=== PATIENT | female | born 1955 | race Caucasian/White ===

== ENCOUNTER 2021-12-13 01:43 | Inpatient (IN) | payer OTHER ==
[~2021-12-13] VITALS: Ht 157.5 cm; Wt 79.4 kg
[2021-12-13 02:44] LABS: Basophils # (auto) 0.1 10 ^3/uL (0-0.2); Basophils % (auto) 0.7 % (0.0-2.0); Eosinophils # (auto) 0.4 10 ^3/uL (0-0.8); Eosinophils % (auto) 4.9 % (0.0-7.0); Hematocrit 42.7 % (36.0-46.0); Hemoglobin 14.8 g/dL (12.2-16.2); Lymphocytes % (auto) 38.6 % (10.0-50.0); Mean Corpuscular Hemoglobin 31.9 pg (28.0-32.0); Mean Corpuscular Hgb Conc. 34.7 g/dL (32.0-36.0); Monocytes # (auto) 0.5 10 ^3/uL (0-1.3); Monocytes % (auto) 5.8 % (0.0-12.0); Neutrophils # (auto) 3.9 10 ^3/uL (1.6-8.6); Red Blood Cells 4.64 10^6/uL (4.0-5.20); White Blood Cell 7.9 10^3/uL (4.4-10.8)
[2021-12-13 03:04] LABS: Calcium 9.2 mg/dL (8.5-10.1); Potassium 3.7 mmol/L (3.5-5.1)
[2021-12-13 03:08] LABS: Albumin 3.7 g/dL (3.4-5.0); BUN/Creatinine Ratio 23.2; Magnesium 2.6 mg/dL (1.6-2.6)
[2021-12-13 03:13] LABS: Bilirubin, Total 0.6 mg/dL (0.2-1.0); Total Protein 7.3 g/dL (6.4-8.2)
[2021-12-13] MEDS ORDERED: NITROGLYCERIN 0.4 MG SL TAB SL PRN ×2 (05:45)
[2021-12-13] MEDS ORDERED: ACETAMINOPHEN 325 MG TAB PO PRN (05:45)
[2021-12-13] MEDS ORDERED: SODIUM CHLORIDE 0.9% 1,000 ML IV SCH (05:45)
[2021-12-13] MEDS ORDERED: MORPHINE SULFATE INJECTION 2 MG/ML SYRG IV PRN (05:45)
[2021-12-13] MEDS ORDERED: MORPHINE SULFATE 4 MG/ML SYR/VIAL IV PRN (05:45)
[2021-12-13 08:07] LABS: Cholesterol 165 mg/dL (< 200); HDL Cholesterol 58 mg/dL (40-59); LDL Cholesterol 88 mg/dL (< 100); Triglycerides 124 mg/dL (< 150)
[2021-12-13 08:55] VITALS: BP 145/83
[2021-12-13 09:00] VITALS: BP 145/83
[2021-12-13] MEDS ORDERED: PANTOPRAZOLE 40 MG TAB PO SCH (10:00)
[2021-12-13] MEDS ORDERED: LISINOPRIL 5 MG TAB PO SCH (10:00)
[2021-12-13] MEDS ORDERED: FAMOTIDINE 20 MG TAB PO SCH (10:00)
[2021-12-13] MEDS ORDERED: ENOXAPARIN SOD 60 MG/0.6 ML SYRINGE SC SCH (10:00)
[2021-12-13] MEDS ORDERED: ASPirin 81 mg TAB PO SCH (10:00)
[2021-12-13] MEDS ORDERED: CARVEDILOL 3.125 MG TAB PO SCH (10:00)
[2021-12-13] MEDS ORDERED: OMEG1CAP68 PO (10:31)
[2021-12-13] MEDS ORDERED: ZINC100T5 PO (10:31)
[2021-12-13] MEDS ORDERED: ATOR10TA52 PO (10:31)
[2021-12-13] MEDS ORDERED: OMEP20TA PO (10:31)
[2021-12-13] MEDS ORDERED: VITACAP OR (10:31)
[2021-12-13] MEDS ORDERED: AMLO5CAP40 PO (10:31)
[2021-12-13] MEDS ORDERED: CHOL20007 PO (10:31)
[2021-12-13] MEDS ORDERED: LEV100T PO (10:31)
[2021-12-13] MEDS ORDERED: VITA400T4 PO (10:31)
[2021-12-13] MEDS ORDERED: AMLO-489 PO (10:31)
[2021-12-13] MEDS ORDERED: MAGN400T40 OR (10:31)
[2021-12-13] MEDS ORDERED: MULT-1018 PO (10:31)
[2021-12-13] MEDS ORDERED: HYDR25TA4 PO (10:31)
[2021-12-13 12:45] VITALS: BP 113/75
[2021-12-13 17:11] VITALS: BP 123/64
[2021-12-13 20:40] VITALS: BP 123/64
[2021-12-13] MEDS ORDERED: ATORVASTATIN 20 MG TAB PO SCH (22:00)
== END 2021-12-13 21:30 | disposition home or self-care (01) | DRG 313 ==
LOC: ER 01:56 → TELE 05:35 → TELE-WESTW 08:56
PROVIDERS: ADMIT Internal Medicine; ATTEND Internal Medicine
DX: R07.89 Other chest pain (principal); I16.1 Hypertensive emergency; R42 Dizziness and giddiness; R55 Syncope and collapse; E66.9 Obesity, unspecified; E03.9 Hypothyroidism, unspecified; E78.5 Hyperlipidemia, unspecified; Z20.822 Contact with and (suspected) exposure to COVID-19; Z80.1 Family history of malignant neoplasm of trachea, bronchus and lung; Z82.0 Family history of epilepsy and other diseases of the nervous system; Z68.32 Body mass index [BMI] 32.0-32.9, adult
CPT/HCPCS: 36415; 70450; 71045; 80053; 80061; 83735; 83880; 84443; 84484; 85025; 85379; 93005; 93306; 93886; 96360; G0378

== ENCOUNTER 2025-06-18 09:28 | Inpatient (IN) | payer OTHER ==
[~2025-06-18] VITALS: Ht 157.5 cm; Wt 88.5 kg
[~2025-06-18 09:28] MED LIST: AMLO1TAB22 PO; AMLO5CAP2 PO; ATOR10TA52 PO; CHOL20007 PO; HYDR25TA4 PO; LEVO-849 PO; MAGN400T40 OR; MULT-1018 PO; OMEG1CAP68 PO; OMEP20TA PO; VITA400T4 PO; VITACAP OR; ZINC100T5 PO
--- NOTE | 2025-06-18 09:36 | ED.PDOC ---
GI ASSESSMENT HPI Comments 69-year-old female presents here with right upper quadrant pain. She states it began yesterday afternoon. She states yesterday morning see ate some cereal and banana. Yesterday afternoon she had for lunch she ate chicken salad sandwich. She states she has follow up by a surgeon Dr. Gabriel Kwan. She states in the past she has been told she has gallstones. She has associated with nausea right upper quadrant pain discomfort. She states yesterday she was doing housework when this pain started. She states once she rested the pain went away. Currently reports no pain reports positive nausea but states it is because she has not eaten anything and that is normal. Denies any recent fever or chills. Yesterday she did have pain with inspiration. Denies any recent cough cold runny nose fever or chills. Chief Complaint: Abdominal Pain Time Seen by MD: 11:50 Reviewed Notes: Medications, Allergies Allergies: Coded Allergies: NO KNOWN ALLERGIES (Unverified , 12/13/21) Home Meds Reported Medications Omeprazole (Gnp Omeprazole) 20 Mg Tab, 40 MG PO, TAB 12/13/21 Magnesium Oxide (MAGNESIUM OXIDE) 400 Mg Tab, 250 MG OR, TAB 12/13/21 Zinc Gluconate (ZINC) 100 Mg Tab, 50 MG PO, TAB 12/13/21 Vitamin [id number] (VITAMIN C & D3/LANDY HIPS) /Landy Hi Cap, 1 OR, CAP 12/13/21 [place]-3 Fatty Acids (Fish Oil [place]-3 1000 mg) 1 Cap Cap, 1 CAP PO, CAP 12/13/21 Multiple Vitamin (Multivitamins) Tab, 1 TAB PO DAILY, #90 TAB 3 Refills 12/13/21 Alpha Tocopheryl Acid Succinat (VITAMIN E) 400 Unit Tab, 400 UNIT PO, TAB 12/13/21 Cholecalciferol (VITAMIN D3) 2,000 Unit Tab, 1 TAB PO DAILY, #30 TAB 5 Refills 12/13/21 Hydrochlorothiazide (Hydrochlorothiazide) 25 Mg Tab, 1 TAB PO DAILY, #30 TAB 5 Refills 12/13/21 Amlodipine Besylate (Amlodipine Besylate) 5 Mg Tab, 1 TAB PO DAILY, #30 TAB 5 Refills 12/13/21 Amlodipine Besylate-Benazepril (Lotrel) 1 Cap Cap, 1 CAP PO DAILY, #30 CAP 5 Refills 12/13/21 Levothyroxine Sodium (SYNTHROID TABLET) 100 Mcg Tb, 1 TAB PO DAILY, #30 TAB 5 Refills 12/13/21 Atorvastatin Calcium (ATORVASTATIN CALCIUM) 10 Mg Tab, 1 TAB PO DAILY, #30 TAB 5 Refills 12/13/21 Information Source: Patient, Spouse Mode of Arrival: Ambulatory Timing: Days Duration: Since onset Prehospital treatment: None Quality: Sharp Vomitus: None Severity: Moderate Recent: None Recent Hx of: None Pain Location: Epigastric, RUQ Modifying Factors: Nothing Associated sign and symptoms: Nausea, Abdominal Pain Past Medical History PAST MEDICAL HISTORY: Gallstones, HTN, Thyroid Surgical History: Denies all surgeries 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 Hx Family History Family History: Reviewed,noncontributory to illness Social History Smoker: Non-Smoker Alcohol: Denies ETOH Use Drugs: Denies Drug Use Lives In: Home Constitutional: denies: chills, diaphoresis, fatigue, fever, malaise, sweats, weakness, others EENTM: denies: blurred vision, double vision, ear bleeding, ear discharge, ear drainage, ear pain, ear ringing, eye pain, eye redness, hearing loss, mouth pain, mouth swelling, nasal discharge, nose bleeding, nose congestion, nose pain, photophobia, tearing, throat pain, throat swelling, voice changes, others Respiratory: denies: cough, hemoptysis, orthopnea, SOB at rest, shortness of breath, SOB with excertion, stridor, wheezing, others Cardiovascular: denies: chest pain, dizzy spells, diaphoresis, Dyspnea on exertion, edema, irregular heart beat, left arm pain, lightheadedness, palpitations, PND, syncope, others Gastrointestinal: reports: abdominal pain, nausea; denies: abdomen distended, blood streaked bowels, constipated, diarrhea, dysphagia, difficulty swallowing, hematemesis, melena, poor appetite, poor fluid intake, rectal bleeding, rectal pain, vomiting, others Genitourinary: denies: abnormal vagina bleeding, burning, dyspareunia, dysuria, flank pain, frequency, hematuria, incontinence, pain, , vagina discharge, urgency, others Neurological: denies: dizziness, fainting, headache, left sided numbness, left sided weakness, numbness, paresthesia, pre-existing deficit, right sided numbness, right sided weakness, seizure, speech problems, tingling, tremors, weakness, others Musculoskeletal: denies: back pain, gout, joint pain, joint swelling, muscle pain, muscle stiffness, neck pain, others Integumetry: denies: bruises, change in color, change in hair/nails, dryness, laceration, lesions, lumps, rash, wounds, others Allergic/Immunocompromised: denies: Difficulty Healing, Frequent Infections, Hives, Itching, others Hematologic/Lymphatic: denies: anemia, blood clots, easy bleeding, easy bruising, swollen glands, others Endocrine: denies: excessive hunger, excessive sweating, excessive thirst, excessive urination, flushing, intolerance to cold, intolerance to heat, unexplained weight gain, unexplained weight loss, others Psychiatric: denies: anxiety, bipolar disorder, depression, hopeless, panic disorder, schizophrenia, sleepless, suicidal, others All Other Systems: Reviewed and Negative Physical Exam General Appearance: No Apparent Distress, Normal HEENT: Normal ENT Inspection, Pharynx Normal, TMs Normal Neck: Full Range of Motion, Non-Tender, Normal, Normal Inspection Respiratory: Chest Non-Tender, Lungs Clear, No Accessory Muscle Use, No Respiratory Distress, Normal Breath Sounds Cardiovascular: No Edema, No JVD, No Murmur, No Gallop, Normal Peripheral Pulses, Regular Rate/Rhythm Breast Exam: Deferred Gastrointestinal: No Organomegaly, Non Tender, No Pulsatile Mass, Normal Bowel Sounds, Soft Genitalia: Deferred Pelvic: Deferred Rectal: Deferred Extremities: No calf tenderness, Normal capillary refill, Normal inspection, Normal range of motion, Non-tender, No pedal edema Musculoskeletal : Apperance: Normal Neurologic: Alert, appeals coordinator II-XII nml as Tested, No Motor Deficits, Normal Affect, Normal Mood, No Sensory Deficits Cerebellar Function: Normal Reflexes: Normal Skin: Dry, Normal Color, Warm Lymphatic: No Adenopathy EKG EKG : Comments Rate of 68 normal sinus rhythm, inverted T-wave in V1 AIVR, T-wave flattening in V2 V3 Was a procedure done? Was a procedure done?: No GI differential Dx Differential Diagnosis: Angina/OH, Aortic dissection, Cholecystitis, Esophagitis, Gastritis/PUD X-Ray, Labs, Meds, VS Vital Signs Date Time Temp Pulse Resp B/P (MAP) Pulse Ox O2 Delivery O2 Flow Rate FiO2 06/18/25 09:39 68 06/18/25 09:30 97.5 70 18 188/75 94 97.5 Lab Test 06/18/25 11:21 06/18/25 10:56 06/18/25 09:54 Range/Units Urine Color Light-yellow Yellow Urine Clarity Clear Clear Urine pH 6.0 5.0-9.0 Urine Specific [place] 1.006 1.001-1.035 Urine Protein Negative Negative Urine Ketones Negative Negative Urine Blood Negative Negative /uL Urine Nitrite Negative Negative Urine Bilirubin Negative Negative Urine Urobilinogen Normal Negative mg/dL Urine Leukocyte Esterase Negative Negative /uL Urine RBC 1 0 - 4 /hpf Urine Microscopic WBC 1 0-5 /HPF Urine Squamous Epithelial Cells Few <5 /hpf Urine Bacteria None seen None Seen /hpf Urine Glucose Normal Normal mg/dL Troponin I High Sensitivity 4 < 3 L </=34 ng/L White Blood Count 7.1 4.4-10.8 10^3/uL Red Blood Count 4.91 4.0-5.20 10^6/uL Hemoglobin 15.1 12.2-16.2 g/dL Hematocrit 43.8 36.0-46.0 % Mean Corpuscular Volume 89.2 80.0-100.0 fL Mean Corpuscular Hemoglobin 30.7 28.0-32.0 pg Mean Corpuscular Hemoglobin Concent 34.4 32.0-36.0 g/dL Red Cell Distribution Width 12.9 11.8-14.3 % Platelet Count 204 140-450 10^3/uL Mean Platelet Volume 7.7 6.9-10.8 fL Neutrophils (%) (Auto) 41.6 37.0-80.0 % Lymphocytes (%) (Auto) 47.4 10.0-50.0 % Monocytes (%) (Auto) 7.5 0.0-12.0 % Eosinophils (%) (Auto) 2.7 0.0-7.0 % Basophils (%) (Auto) 0.8 0.0-2.0 % Neutrophils # (Auto) 3.0 1.6-8.6 10 ^3/uL Lymphocytes # (Auto) 3.4 0.4-5.4 10 ^3/uL Monocytes # (Auto) 0.5 0-1.3 10 ^3/uL Eosinophils # (Auto) 0.2 0-0.8 10 ^3/uL Basophils # (Auto) 0.1 0-0.2 10 ^3/uL Nucleated Red Blood Cells 0.2 % Sodium Level 138 136-145 mmol/L Potassium Level 3.9 3.5-5.1 mmol/L Chloride Level 102 98-107 mmol/L Carbon Dioxide Level 28 20-31 mmol/L Anion Gap 8 5-15 Blood Urea Nitrogen 11 9-23 mg/dL Creatinine 0.82 0.550-1.02 mg/dL Glomerular Filtration Rate Calc 78 >90 mL/min BUN/Creatinine Ratio 13.4 10.0-20.0 Serum Glucose 134 H 74-106 mg/dL Calcium Level 9.4 8.7-10.4 mg/dL Total Bilirubin 0.8 0.2-1.0 mg/dL Aspartate Amino Transferase (AST) 53 H 13-40 U/L Alanine Aminotransferase (ALT) 69 H 7-40 U/L Alkaline Phosphatase 88 46-116 U/L Total Protein 7.0 5.7-8.2 g/dL Albumin 4.3 3.2-4.8 g/dL Lipase 45 12-53 U/L Current Medications Medications (Trade) Dose Ordered Sig/Aaliyah Route Start Time Stop Time Status Last Admin Sodium Chloride 500 ml @ 500 mls/hr Q1H ONCE IV 06/18/25 09:45 06/18/25 10:44 DC 06/18/25 11:18 [place] [id number] Ph: [phone] DIAGNOSTIC IMAGING Diagnostic Imaging Report : [id number] Signed PATIENT: EKATERIAN LOUISE ACCT: [id number] UNIT: [id number] : 1955 LOC: ER ROOM / BED: / AGE / SEX: 69 / F ADM STATUS: REG ER SERVICE 0940 ORDERING PHYSICIAN: OSVALDO QUIROZ MD PROCEDURE(s): GBUS - GALLBLADDER REASON: Rule out cholecystitis ORDER NUMBER(s): [id number], ACCESSION NUMBER(s): [id number] INDICATION: Pain; Rule out cholecystitis TECHNIQUE: Multiple real-time sonographic images were obtained of the right upper quadrant. COMPARISON: None FINDINGS: The liver demonstrates increased echotexture without focal mass lesions. The liver measures 16 cm. There is no intrahepatic or extrahepatic ductal dilatation. The common duct measures 5 mm. The gallbladder is without evidence of stone or sludge. Gallbladder polyp measuring 0.6 cm. The gallbladder wall measures 2 mm and is within normal limits. The right kidney measures 10.4 cm. The right kidney is normal in contour, size, and shape. The echogenicity is normal. There is no hydronephrosis. The pancreas is not well visualized due to overlying bowel gas. IMPRESSION: Hepatic steatosis. Gallbladder polyp measuring 0.6 cm. FOLLOW UP RECOMMENDATIONS: Extremely low-risk polyps (pedunculated vagh-mw-tqv-wall or thin stalk): <9 mm: no follow-up (FU) 10-14 mm: FU at 6, 12 and 24 months > 15 mm: surgical consult Low-risk polyps (pedunculated with a thick or wide stalk, or sessile): < 6 mm: no follow-up 7-9 mm follow-up ultrasound at 12 months 10-14 mm: follow-up ultrasound at 6, 12, 24, and 36 months vs surgical consult > 15 mm: surgical consult Intermediate risk (focal wall-thickening >4mm adjacent to polyp): < 6 mm: FU US at 6, 12, 24, 36 months vs surgical consult > 7 mm: surgical consult Robin Wooten, Elma Painter, Jaclyn Dawson et al. Management of Incidentally Detected Gallbladder Polyps: Society of Radiologists in Ultrasound Consensus Conference Recommendations. Radiology. 2021;:[id number]. ATED BY: SWATI MARTINEZ MD DICTATED DATE/TIME: 06/18/25 1118 SIGNED BY: SWATI MARTINEZ MD SIGNED DATE/TIME: 06/18/25 1118 CC: 69-year-old female presents here with right upper quadrant pain. She states she has a history of gallstones and has been following Dr. Pepper Kwan. She states yesterday she was doing housework when the discomfort started pain to the right upper quadrant associated with nausea. She states soon after she rested and the pain went away. At this time I performed an ultrasound of the gallbladder here in the ER. It demonstrates hepatic steatosis a 0.6 mm polyp but no gallstones or sludge. I had a long conversation with both the patient and her has been. We initially discussed following up with Dr. Gabriel Kwan as it is possible they were not seen today but were on previous ultrasounds. Additionally a CBC CMP were performed which does demonstrate mild transaminitis which patient states she has a known history of. EKG today however does demonstrate inverted T-waves in multiple leads and T-wave flattening. Although troponin x2 is negative. At this time I am concerned the her discomfort may be cardiac versus gallbladder related. She has agreed to stay in the hospital. Currently she has no discomfort. At this time hospitalist team has been consulted for admission. I have given her aspirin in the ER. Time of 1ST Reevaluation: 12:20 Reevaluation 1ST: Unchanged Patient Education/Counseling: Diagnosis, Treatment Family Education/Counseling: Diagnosis, Treatment SEPSIS Sepsis Screen Date sepsis recognized/suspect: Jun 18, 2025 Time Sepsis recognized/suspect: 931 Recent Procedure: No On Antibiotic Therapy: No Respiratory Rate >20: No Heart Rate >90: No Temp<36 C (96.8 F) or >38.3 C: No SBP <90 or MAP <65 mmHG: No New Acute Mental Status Change: No Is the patient on CPAP, BIPAP,: No Physician Orders Gallbladder (06/18/25 09:40) Vital Signs Date Time Temp Pulse Resp B/P (MAP) Pulse Ox O2 Delivery O2 Flow Rate FiO2 06/18/25 09:39 68 06/18/25 09:30 97.5 70 18 188/75 94 97.5 Laboratory Tests Test 06/18/25 09:54 White Blood Count 7.1 10^3/uL (4.4-10.8) Medications Medications Dose Ordered Sig/Aaliyah Route Start Time Stop Time Status Last Admin Dose Admin Sodium Chloride 500 ml @ 500 mls/hr Q1H ONCE IV 06/18/25 09:45 06/18/25 10:44 DC 06/18/25 11:18 Departure 1 Departure Time of Disposition: 12:18 Impression: Primary Impression: EKG abnormality Additional Impressions: Chest pain Qualified Codes: R07.9 - Chest pain, unspecified Hepatic steatosis Gallbladder polyp Disposition: ADMITTED INPATIENT Condition: Fair Critical Care Note Critical Care Time?: No Stability Stability form required: No Heart Score Heart Score: Heart Score Response (Comments) Value History Moderate Suspicious 1 EKG Repolarization Disturb 1 Age >65 2 Risk Factors 1 or 2 risk factors 1 Troponin Normal limit 0 Total 5 I personally scribed for OSVALDO QUIROZ MD ([email or web address]) on 06/18/25 at 09:36. Electronically submitted by Marta Diop ([email or web address]). I personally scribed for OSVALDO QUIROZ MD ([email or web address]) on 06/18/25 at 11:34. Electronically submitted by Marta Diop ([email or web address]). I personally scribed for OSVALDO QUIROZ MD ([email or web address]) on 06/18/25 at 11:50. Electronically submitted by Marta Diop ([email or web address]). I personally scribed for OSVALDO QUIROZ MD ([email or web address]) on 06/18/25 at 12:01. Electronically submitted by Marta Diop ([email or web address]). OSVALDO QUIROZ MD Jun 18, 2025 09:36
--- NOTE | 2025-06-18 09:56 | ECG ---
[facility] Test Date: 2025-06-18 Test Time: 09:39:27 Pat Name: EKATERINA LOUISE Department: Room: 0295T Gender: F Yard Hostler: DELORIS : 1955 Requested By: OSVALDO QUIROZ Order Number: [id number] Reading MD: Timothy Corona Measurements Intervals [place] Rate: 68 P: 1 KS: 148 QRS: 8 QRSD: 87 T: 51 QT: 421 QTc: 448 Interpretive Statements Sinus rhythm Low voltage, precordial leads Borderline T abnormalities, anterior leads Baseline wander in lead(s) V4 Electronically Signed On 06-21-2025 18:42:56 PDT by Timothy Corona Please click the below link to view image of tracing.
[2025-06-18 10:03] LABS: Hematocrit 43.8 % (36.0-46.0); Hemoglobin 15.1 g/dL (12.2-16.2); Mean Corpuscular Hemoglobin 30.7 pg (28.0-32.0); Mean Corpuscular Volume 89.2 fL (80.0-100.0); Nucleated Red Blood Cells % 0.2 %
[2025-06-18 10:20] LABS: Alanine Aminotransferase 69 U/L (7-40); Albumin 4.3 g/dL (3.2-4.8); Alkaline Phosphatase 88 U/L (46-116); Anion Gap 8 (5-15); BUN/Creatinine Ratio 13.4 (10.0-20.0); Bilirubin, Total 0.8 mg/dL (0.2-1.0); Blood Urea Nitrogen 11 mg/dL (9-23); Calcium 9.4 mg/dL (8.7-10.4); Carbon Dioxide 28 mmol/L (20-31); Chloride 102 mmol/L (98-107); Glucose 134 mg/dL (74-106); Lipase 45 U/L (12-53); Potassium 3.9 mmol/L (3.5-5.1); Sodium 138 mmol/L (136-145); Total Protein 7.0 g/dL (5.7-8.2)
[2025-06-18] MEDS: SODIUM CHLORIDE 0.9% 500 ML IV ONE (11:18)
[2025-06-18] MEDS: ONDANSETRON HCL 4 MG/2 ML VIAL IV ONE (11:18)
[2025-06-18] MEDS: MORPHINE SULFATE INJ 2 MG/ml SYRG IV ONE (11:18)
--- NOTE | 2025-06-18 11:21 | DVH ---
INDICATION: Pain; Rule out cholecystitis TECHNIQUE: Multiple real-time sonographic images were obtained of the right upper quadrant. COMPARISON: None FINDINGS: The liver demonstrates increased echotexture without focal mass lesions. The liver measures 16 cm. There is no intrahepatic or extrahepatic ductal dilatation. The common duct measures 5 mm. The gallbladder is without evidence of stone or sludge. Gallbladder polyp measuring 0.6 cm. The gallb ladder wall measures 2 mm and is within normal limits. The right kidney measures 10.4 cm. The right kidney is normal in contour, size, and shape. The echog enicity is normal. There is no hydronephrosis. The pancreas is not well visualized due to overlying bowel gas. IMPRESSION: Hepatic steatosis. Gallbladder polyp measuring 0.6 cm. FOLLOW UP RECOMMENDATIONS: Extremely low-risk polyps (pedunculated iqmm-fz-ecs-wall or thin stalk): <9 mm: no follow-up (FU) 10-14 mm: FU at 6, 12 and 24 months > 15 mm: surgical consult Low-risk polyps (pedunculated with a thick or wide stalk, or sessile): < 6 mm: no follow-up 7-9 mm follow-up ultrasound at 12 months 10-14 mm: follow-up ultrasound at 6, 12, 24, and 36 months vs surgical consult > 15 mm: surgical consult Intermediate risk (focal wall-thickening >4mm adjacent to polyp): < 6 mm: FU US at 6, 12, 24, 36 months vs surgical consult > 7 mm: surgical consult Robin Wooten, Elma C, Jaclyn J et al. Management of Incidentally Detected Gallbladder Polyps: Society of Radiologists in Ultrasound Consensus Conference Recommendations. Radiology. 2021;:[id number].
[2025-06-18 11:31] LABS: Urine Protein, UAD Negative (Negative)
[2025-06-18 12:15] VITALS: PULSE 67; RESP 13; O2SAT 96
--- NOTE | 2025-06-18 12:56 | DVH ---
CHEST RADIOGRAPH Indication: Chest pain Technique: XY CHEST TWO VIEWS ROUTINE Comparison: None FINDINGS: The cardiac silhouette is unremarkable. The lungs demonstrate no pulmonary airspace consolidation. Th e pulmonary vasculature is unremarkable. There is no pleural effusion. There is no pneumothorax. IMPRESSION: No pulmonary airspace consolidation.
[2025-06-18] MEDS ORDERED: MORPHINE SULFATE INJ 2 MG/ml SYRG IV PRN ×2 (13:30→13:45)
[2025-06-18] MEDS ORDERED: NITROGLYCERIN 0.4 MG SL TAB SL PRN (13:30)
--- NOTE | 2025-06-18 13:42 | DVHHP2 ---
History of Present Illness Reason for Visit: Chest-epigastric discussed History of Present Illness 69-year-old female presents here with right upper quadrant pain. She states it began yesterday afternoon. She states yesterday morning see ate some cereal and banana. Yesterday afternoon she had for lunch she ate chicken salad sandwich. She states she has follow up by a surgeon Dr. Gabriel Kwan. She states in the past she has been told she has gallstones. She has associated with nausea right upper quadrant pain discomfort. She states yesterday she was doing housework when this pain started. She states once she rested the pain went away. Currently reports no pain reports positive nausea but states it is because she has not eaten anything and that is normal. Denies any recent fever or chills. Yesterday she did have pain with inspiration. Denies any recent cough cold runny nose fever or chills. In the ER patient ultrasound of the gallbladder showed a small gallbladder polyp otherwise no stones or acute pathology. However her EKG done showed a nonspecific T-wave inversions in the lateral leads which appeared to be new from her previous EKG done in 2021. Given her nonspecific compliance with the changes in EKG it is felt patient needs to be observed on telemetry overnight to rule out for any acute coronary syndrome and further evaluation management. Past Medical History Hypertension, hypercholesterolemia, hypothyroidism, osteoarthritis Past Surgical History None significant noted Family History: Hyperlipidemia, Hypertension Smoke: No ALCOHOL: occassional Lives: with Family Review of Systems Review of Systems No fevers chills or sweats. No headache dizziness or lightheadedness. No recent travel. No shortness a breath. Other review of systems reviewed normal. Allergies: Coded Allergies: Cephalexin (Verified Allergy, Unknown, 06/18/25) Sulfa Antibiotics (Verified Allergy, Unknown, 06/18/25) Medications Current Medications Medications Dose Ordered Sig/Aaliyah Route Start Time Stop Time Status Last Admin Dose Admin Nitroglycerin 0.4 mg Q5MINP PRN SL 06/18/25 13:30 UNV Morphine Sulfate 2 mg Q30M PRN IV 06/18/25 13:30 UNV Amlodipine Besylate 5 mg DAILY PO 06/19/25 10:00 UNV Levothyroxine Sodium 100 mcg DAILY PO 06/19/25 10:00 UNV Atorvastatin Calcium 10 mg HS PO 06/18/25 22:00 UNV Pantoprazole Sodium 40 mg BID IV 06/18/25 22:00 UNV Enoxaparin Sodium 40 mg DAILY SC 06/19/25 10:00 UNV Aspirin 81 mg DAILY PO 06/19/25 10:00 UNV Ondansetron HCl 4 mg Q4HPRN PRN IV 06/18/25 13:45 UNV Morphine Sulfate 2 mg Q4HPRN PRN IV 06/18/25 13:45 UNV Acetaminophen/ Hydrocodone Bitart 1 tab Q6HPRN PRN PO 06/18/25 13:45 UNV Exam Vital Signs Vital Signs Date Time Temp Pulse Resp B/P (MAP) Pulse Ox O2 Delivery O2 Flow Rate FiO2 06/18/25 12:15 98.0 67 13 175/75 (108) 96 98.0 06/18/25 12:15 Room Air* 0 21 Exam Alert awake oriented x3. Comfortable in bed. No pain at present. HEENT neck supple no JVD pupils equal round react to light. Heart regular rate and rhythm S1 plus S2 without murmurs. Lungs fair air movement chest equal expansion without rales or wheezes. Abdomen is soft and minimal tenderness in the epig astric region without rebound or guarding. Positive active bowel sounds. Extremities no edema. Positive pulses. Labs/Xrays Labs Test 06/18/25 11:21 06/18/25 10:56 06/18/25 09:54 Range/Units Urine Color Light-yellow Yellow Urine Clarity Clear Clear Urine pH 6.0 5.0-9.0 Urine Specific [place] 1.006 1.001-1.035 Urine Protein Negative Negative Urine Ketones Negative Negative Urine Blood Negative Negative /uL Urine Nitrite Negative Negative Urine Bilirubin Negative Negative Urine Urobilinogen Normal Negative mg/dL Urine Leukocyte Esterase Negative Negative /uL Urine RBC 1 0 - 4 /hpf Urine Microscopic WBC 1 0-5 /HPF Urine Squamous Epithelial Cells Few <5 /hpf Urine Bacteria None seen None Seen /hpf Urine Glucose Normal Normal mg/dL Troponin I High Sensitivity 4 </=34 ng/L White Blood Count 7.1 4.4-10.8 10^3/uL Red Blood Count 4.91 4.0-5.20 10^6/uL Hemoglobin 15.1 12.2-16.2 g/dL Hematocrit 43.8 36.0-46.0 % Mean Corpuscular Volume 89.2 80.0-100.0 fL Mean Corpuscular Hemoglobin 30.7 28.0-32.0 pg Mean Corpuscular Hemoglobin Concent 34.4 32.0-36.0 g/dL Red Cell Distribution Width 12.9 11.8-14.3 % Platelet Count 204 140-450 10^3/uL Mean Platelet Volume 7.7 6.9-10.8 fL Neutrophils (%) (Auto) 41.6 37.0-80.0 % Lymphocytes (%) (Auto) 47.4 10.0-50.0 % Monocytes (%) (Auto) 7.5 0.0-12.0 % Eosinophils (%) (Auto) 2.7 0.0-7.0 % Basophils (%) (Auto) 0.8 0.0-2.0 % Neutrophils # (Auto) 3.0 1.6-8.6 10 ^3/uL Lymphocytes # (Auto) 3.4 0.4-5.4 10 ^3/uL Monocytes # (Auto) 0.5 0-1.3 10 ^3/uL Eosinophils # (Auto) 0.2 0-0.8 10 ^3/uL Basophils # (Auto) 0.1 0-0.2 10 ^3/uL Nucleated Red Blood Cells 0.2 % Sodium Level 138 136-145 mmol/L Potassium Level 3.9 3.5-5.1 mmol/L Chloride Level 102 98-107 mmol/L Carbon Dioxide Level 28 20-31 mmol/L Anion Gap 8 5-15 Blood Urea Nitrogen 11 9-23 mg/dL Creatinine 0.82 0.550-1.02 mg/dL Glomerular Filtration Rate Calc 78 >90 mL/min BUN/Creatinine Ratio 13.4 10.0-20.0 Serum Glucose 134 H 74-106 mg/dL Calcium Level 9.4 8.7-10.4 mg/dL Total Bilirubin 0.8 0.2-1.0 mg/dL Aspartate Amino Transferase (AST) 53 H 13-40 U/L Alanine Aminotransferase (ALT) 69 H 7-40 U/L Alkaline Phosphatase 88 46-116 U/L Total Protein 7.0 5.7-8.2 g/dL Albumin 4.3 3.2-4.8 g/dL Lipase 45 12-53 U/L SEPSIS Sepsis Screen Date sepsis recognized/suspect: Jun 18, 2025 Time Sepsis recognized/suspect: 1020 Recent Procedure: No On Antibiotic Therapy: No Respiratory Rate >20: No Heart Rate >90: No Temp<36 C (96.8 F) or >38.3 C: No SBP <90 or MAP <65 mmHG: No New Acute Mental Status Change: No Is the patient on CPAP, BIPAP,: No Physician Orders Gallbladder (06/18/25 09:40) Chest Two Views Routine (06/18/25 12:20) Admit (06/18/25 13:30) * Cardiology Consult (06/18/25 13:30) Echo 2d Mode Cardiac Dop (06/18/25 13:30) Cardiac Diet-2gna,Lofat,Lochol (06/18/25 Lunch) Troponin-I Hs (06/18/25 13:30) Nitroglycerin Sublingual (Ntrostat Subli (06/18/25 13:30) Morphine Sulfate Injection (06/18/25 13:30) Stat Ekg For Chest Pain (06/18/25 13:30) Notify Md Of Changes From Base (06/18/25 13:30) Air Launch Weapons Technician For 24 Hours (06/18/25 13:30) Emergency Dysrhythmia Protocol (06/18/25 13:30) Rhythm Strips Once Every Shift (06/18/25 13:30) Oxygen By Nasal Cannula (06/18/25 13:30) Troponin-I Hs (06/18/25 16:30) Troponin-I Hs (06/19/25 04:00) Amlodipine Tablet (Norvasc Tablet) (06/19/25 10:00) Levothyroxine Tablet (Synthroid Tablet) (06/19/25 10:00) Atorvastatin (Lipitor) (06/18/25 22:00) Pantoprazole (Protonix) (06/18/25 22:00) Enoxaparin Sodium (Lovenox) (06/19/25 10:00) Aspirin Enteric Coated Tablet (Ecotrin E (06/19/25 10:00) Ondansetron Hcl (Zofran) (06/18/25 13:45) Morphine Sulfate Injection (06/18/25 13:45) Hydrocodone-Acet 5/325mg Tab ([place] 5/32 (06/18/25 13:45) Electrocardigram (06/19/25 04:00) Comprehensive Metabolic Panel (06/19/25 04:00) Lipase (06/19/25 04:00) Lipid Panel (06/19/25 04:00) Vital Signs Date Time Temp Pulse Resp B/P (MAP) Pulse Ox O2 Delivery O2 Flow Rate FiO2 06/18/25 12:15 98.0 67 13 175/75 (108) 96 98.0 06/18/25 12:15 67 13 96 Room Air* 0 21 06/18/25 09:39 68 06/18/25 09:30 97.5 70 18 188/75 94 97.5 Laboratory Tests Test 06/18/25 09:54 White Blood Count 7.1 10^3/uL (4.4-10.8) Medications Medications Dose Ordered Sig/Aaliyah Route Start Time Stop Time Status Last Admin Dose Admin Aspirin 162 mg ONCE ONCE PO 06/18/25 12:30 06/18/25 12:31 DC 06/18/25 13:17 162 MG Sodium Chloride 500 ml @ 500 mls/hr Q1H ONCE IV 06/18/25 09:45 06/18/25 10:44 DC 06/18/25 11:18 500 MLS/HR Assessment/Plan Assessment/Plan Epigastric/chest discomfort unclear etiology possible guarded versus angina pectoris versus other causes Hypertension Hyperlipidemia We will admit her to telemetry floor. We will do a follow up EKG. Serial cardiac enzymes. 2D echocardiogram. Cardiac consultation. I will start her on proton pump inhibitor for possible gastritis/GERD symptoms for epigastric pain. Follow the lipase. Follow liver function tests. Otherwise continue home medications for blood pressure and cholesterol medicines. Supportive care and treatment. Pain medications. Further clinical management per clinical course a nd recommendations from the consultants. Discussed with the ER physician/patient regarding care plan. Plan discussed with: Other My Orders Orders - ROLANDO JHA MD Procedure Category Date Status Time Admit ADMIT 06/18/25 Transmitted 13:30 * Cardiology Consult CONS 06/18/25 Transmitted 13:30 Echo 2d Mode Cardiac US 06/18/25 Logged DOP 13:30 Cardiac DIET 06/18/25 Transmitted Diet-2gna,Lofat,Lochol Lunch Troponin-I Hs LAB 06/18/25 Logged 13:30 Nitroglycerin PHA 06/18/25 Logged Sublingual (Ntrostat 13:30 Morphine Sulfate PHA 06/18/25 Logged Injection 13:30 Stat Ekg For Chest [facility] 06/18/25 In Process Pain 13:30 Notify Of Changes [facility] 06/18/25 In Process From Base 13:30 Air Launch Weapons Technician For [facility] 06/18/25 In Process 24 Hours 13:30 Emergency Dysrhythmia [facility] 06/18/25 In Process Protocol 13:30 Rhythm Strips Once [facility] 06/18/25 In Process Every Shift 13:30 Oxygen By Nasal RT 06/18/25 Transmitted Cannula 13:30 Troponin-I Hs LAB 06/18/25 Logged 16:30 Troponin-I Hs LAB 06/19/25 Verified 04:00 Amlodipine Tablet PHA 06/19/25 Logged (Norvasc Tablet) 10:00 Levothyroxine Tablet PHA 06/19/25 Logged (Synthroid Tablet) 10:00 Atorvastatin (Lipitor) PHA 06/18/25 Logged 22:00 Pantoprazole PHA 06/18/25 Logged (Protonix) 22:00 Enoxaparin Sodium PHA 06/19/25 Logged (Lovenox) 10:00 Aspirin Enteric PHA 06/19/25 Logged Coated Tablet 10:00 Ondansetron Hcl PHA 06/18/25 Logged (Zofran) 13:45 Morphine Sulfate PHA 06/18/25 Logged Injection 13:45 Hydrocodone-Acet PHA 06/18/25 Logged 5/325mg Tab ([place] 13:45 Electrocardigram EKG 06/19/25 Logged 04:00 Comprehensive LAB 06/19/25 Verified Metabolic Panel 04:00 Lipase LAB 06/19/25 Verified 04:00 Lipid Panel LAB 06/19/25 Verified 04:00 Problem List: (1) Gallbladder polyp (2) Hepatic steatosis (3) EKG abnormality (4) Chest pain ROLANDO JHA MD Jun 18, 2025 13:42
[2025-06-18] MEDS ORDERED: HYDROcodone-ACET 5/325MG TAB PO PRN (13:45)
[2025-06-18] MEDS ORDERED: ONDANSETRON HCL 4 MG/2 ML VIAL IV PRN (13:45)
[2025-06-18 18:00] VITALS: BP 177/81; PULSE 64; RESP 18; TEMP 97.6; O2SAT 98
[2025-06-18 18:01] VITALS: BP 177/81; PULSE 64; RESP 18; TEMP 97.6; O2SAT 98
[2025-06-18 19:43] VITALS: BP 143/57
[2025-06-18 20:00] VITALS: PULSE 67; PULSE 96; RESP 16; O2SAT 98
[2025-06-18 21:00] VITALS: BP 129/75; PULSE 65; RESP 18; TEMP 98.3; O2SAT 98
[2025-06-18] MEDS ORDERED: LEVO88CA3 PO (21:42)
[2025-06-18] MEDS: PANTOPRAZOLE 40 MG/10 ML VIAL INJ IV SCH (21:43)
[2025-06-18] MEDS: ATORVASTATIN 20 MG TAB PO SCH (21:43)
--- NOTE | 2025-06-18 23:33 | DVHINCON2 ---
Date of service: Jun 18, 2025 Referring Physician Yenny Reason for Consultation Abnormal EKG. Chest pain. History of Present Illness This is a 69-year-old female with a PMH of gallstones, HTN who presented to the ED with complaints of right upper quadrant abdominal pain. Patient states it began yesterday afternoon. She states yesterday morning see ate some cereal and banana. Yesterday afternoon she had for lunch she ate chicken salad sandwich. She states she has follow up appointment with surgeon Dr. Garbiel Gastelum. Patient states in the past she has been told she has gallstones. Patient has associated with nausea right upper quadrant pain discomfort. She states yesterday she was doing housework when this pain started. She states once she rested the pain went away. TROP is negative. Gallbladder US showed hepatic steatosis. Gallbladder polyp measuring 0.6 cm. Chest x-ray showed NAD. Patient was admitted to the hospital. I am asked to consult on this patient. Family History: Alzheimer's disease G8 MOTHER Cardiovascular disease G8 MOTHER Diabetes mellitus G8 FATHER Hypertension G8 FATHER Thyroid disease G8 MOTHER Allergies: Coded Allergies: Cephalexin (Verified Allergy, Unknown, 06/18/25) Sulfa Antibiotics (Verified Allergy, Unknown, 06/18/25) Home Meds Reported Medications Levothyroxine Sodium (Levothyroxine Sodium) 88 Mcg Cap, 88 MCG PO DAILY, CAP 06/18/25 Omeprazole (Gnp Omeprazole) 20 Mg Tab, 40 MG PO, TAB 12/13/21 Magnesium Oxide (MAGNESIUM OXIDE) 400 Mg Tab, 250 MG OR, TAB 12/13/21 Zinc Gluconate (ZINC) 100 Mg Tab, 50 MG PO, TAB 12/13/21 Vitamin R-Vbyohylktyksboq-Yyhe (VITAMIN C & D3/LANDY HIPS) /[place] Hi Cap, 1 OR, CAP 12/13/21 [place]-3 Fatty Acids (Fish Oil [place]-3 1000 mg) 1 Cap Cap, 1 CAP PO, CAP 12/13/21 Multiple Vitamin (Multivitamins) Tab, 1 TAB PO DAILY, #90 TAB 3 Refills 12/13/21 Alpha Tocopheryl Acid Succinat (VITAMIN E) 400 Unit Tab, 400 UNIT PO, TAB 12/13/21 Cholecalciferol (VITAMIN D3) 2,000 Unit Tab, 1 TAB PO DAILY, #30 TAB 5 Refills 12/13/21 Hydrochlorothiazide (Hydrochlorothiazide) 25 Mg Tab, 1 TAB PO DAILY, #30 TAB 5 Refills 12/13/21 Amlodipine Besylate-Benazepril (Lotrel) 1 Cap Cap, 1 CAP PO DAILY, #30 CAP 5 Refills 12/13/21 Atorvastatin Calcium (ATORVASTATIN CALCIUM) 10 Mg Tab, 1 TAB PO DAILY, #30 TAB 5 Refills 12/13/21 Discontinued Reported Medications Amlodipine Besylate (Amlodipine Besylate) 5 Mg Tab, 1 TAB PO DAILY, #30 TAB 5 Refills 12/13/21 Levothyroxine Sodium (SYNTHROID TABLET) 100 Mcg Tb, 1 TAB PO DAILY, #30 TAB 5 Refills 12/13/21 Current Medications Current Medications Medications (Trade) Dose Ordered Sig/Aaliyah Route PRN Reason Start Time Stop Time Status Last Admin Nitroglycerin (Ntrostat Sublingual) 0.4 mg Q5MINP PRN SL FOR CHEST PAIN 06/18/25 13:30 Morphine Sulfate 2 mg Q30M PRN IV FOR CHEST PAIN 06/18/25 13:30 Amlodipine Besylate (Norvasc Tablet) 5 mg DAILY PO 06/19/25 10:00 Levothyroxine Sodium (Synthroid Tablet) 100 mcg DAILY PO 06/19/25 10:00 Atorvastatin Calcium (Lipitor) 10 mg HS PO 06/18/25 22:00 Pantoprazole Sodium (Protonix) 40 mg BID IV 06/18/25 22:00 Enoxaparin Sodium (Lovenox) 40 mg DAILY SC 06/19/25 10:00 Aspirin (Ecotrin Enteric Coated Tablet) 81 mg DAILY PO 06/19/25 10:00 Ondansetron HCl (Zofran) 4 mg Q4HPRN PRN IV NAUSEA / VOMITING 06/18/25 13:45 Morphine Sulfate 2 mg Q4HPRN PRN IV SEVERE PAIN (7-10 PAIN SCALE) 06/18/25 13:45 Acetaminophen/ Hydrocodone Bitart ([place] 5/325MG Tab) 1 tab Q6HPRN PRN PO MODERATE PAIN (4-6 PAIN SCALE) 06/18/25 13:45 Review of Systems Constitutional: denies: chills, diaphoresis, fatigue, fever, malaise, sweats, weakness, others EENTM: denies: blurred vision, double vision, ear bleeding, ear discharge, ear drainage, ear pain, ear ringing, eye pain, eye redness, hearing loss, mouth pain, mouth swelling, nasal discharge, nose bleeding, nose congestion, nose pain, photophobia, tearing, throat pain, throat swelling, voice changes, others Respiratory: denies: cough, hemoptysis, orthopnea, SOB at rest, shortness of breath, SOB with excertion, stridor, wheezing, others Cardiovascular: denies: chest pain, dizzy spells, diaphoresis, Dyspnea on exertion, edema, irregular heart beat, left arm pain, lightheadedness, palpitations, PND, syncope, others Gastrointestinal: reports: abdominal pain, nausea; denies: abdomen distended, blood streaked bowels, constipated, diarrhea, dysphagia, difficulty swallowing, hematemesis, melena, poor appetite, poor fluid intake, rectal bleeding, rectal pain, vomiting, others Genitourinary: denies: abnormal vagina bleeding, burning, dyspareunia, dysuria, flank pain, frequency, hematuria, incontinence, pain, , vagina discharge, urgency, others Neurological: denies: dizziness, fainting, headache, left sided numbness, left sided weakness, numbness, paresthesia, pre-existing deficit, right sided numbness, right sided weakness, seizure, speech problems, tingling, tremors, weakness, others Musculoskeletal: denies: back pain, gout, joint pain, joint swelling, muscle pain, muscle stiffness, neck pain, others Integumetry: denies: bruises, change in color, change in hair/nails, dryness, laceration, lesions, lumps, rash, wounds, others Allergic/Immunocompromised: denies: Difficulty Healing, Frequent Infections, Hives, Itching, others Hematologic/Lymphatic: denies: anemia, blood clots, easy bleeding, easy bruising, swollen glands, others Endocrine: denies: excessive hunger, excessive sweating, excessive thirst, excessive urination, flushing, intolerance to cold, intolerance to heat, unexplained weight gain, unexplained weight loss, others Psychiatric: denies: anxiety, bipolar disorder, depression, hopeless, panic disorder, schizophrenia, sleepless, suicidal, others All Other Systems: Reviewed and Negative Vital Signs Vital Signs Date Time Temp Pulse Resp B/P (MAP) Pulse Ox O2 Delivery O2 Flow Rate FiO2 06/18/25 15:00 64 13 153/64 (93) 93 06/18/25 12:15 98.0 98.0 06/18/25 12:15 Room Air* 0 21 Physical Exam GENERAL: Alert and oriented x 3. No acute distress. EYES: PERRL, EOMI. Anicteric. HENT: Moist mucous membranes. LUNGS: Clear to auscultation bilaterally. CARDIOVASCULAR: Regular rate and rhythm. ABDOMEN: Soft, nontender and nondistended. EXTREMITIES: No edema. NEUROLOGIC: No focal neurological deficits. SKIN: Warm, dry. Labs/Diagnostic Data Labs Test 06/18/25 13:46 06/18/25 11:21 06/18/25 09:54 Range/Units Troponin I High Sensitivity < 3 L </=34 ng/L Urine Color Light-yellow Yellow Urine Clarity Clear Clear Urine pH 6.0 5.0-9.0 Urine Specific [place] 1.006 1.001-1.035 Urine Protein Negative Negative Urine Ketones Negative Negative Urine Blood Negative Negative /uL Urine Nitrite Negative Negative Urine Bilirubin Negative Negative Urine Urobilinogen Normal Negative mg/dL Urine Leukocyte Esterase Negative Negative /uL Urine RBC 1 0 - 4 /hpf Urine Microscopic WBC 1 0-5 /HPF Urine Squamous Epithelial Cells Few <5 /hpf Urine Bacteria None seen None Seen /hpf Urine Glucose Normal Normal mg/dL White Blood Count 7.1 4.4-10.8 10^3/uL Red Blood Count 4.91 4.0-5.20 10^6/uL Hemoglobin 15.1 12.2-16.2 g/dL Hematocrit 43.8 36.0-46.0 % Mean Corpuscular Volume 89.2 80.0-100.0 fL Mean Corpuscular Hemoglobin 30.7 28.0-32.0 pg Mean Corpuscular Hemoglobin Concent 34.4 32.0-36.0 g/dL Red Cell Distribution Width 12.9 11.8-14.3 % Platelet Count 204 140-450 10^3/uL Mean Platelet Volume 7.7 6.9-10.8 fL Neutrophils (%) (Auto) 41.6 37.0-80.0 % Lymphocytes (%) (Auto) 47.4 10.0-50.0 % Monocytes (%) (Auto) 7.5 0.0-12.0 % Eosinophils (%) (Auto) 2.7 0.0-7.0 % Basophils (%) (Auto) 0.8 0.0-2.0 % Neutrophils # (Auto) 3.0 1.6-8.6 10 ^3/uL Lymphocytes # (Auto) 3.4 0.4-5.4 10 ^3/uL Monocytes # (Auto) 0.5 0-1.3 10 ^3/uL Eosinophils # (Auto) 0.2 0-0.8 10 ^3/uL Basophils # (Auto) 0.1 0-0.2 10 ^3/uL Nucleated Red Blood Cells 0.2 % Sodium Level 138 136-145 mmol/L Potassium Level 3.9 3.5-5.1 mmol/L Chloride Level 102 98-107 mmol/L Carbon Dioxide Level 28 20-31 mmol/L Anion Gap 8 5-15 Blood Urea Nitrogen 11 9-23 mg/dL Creatinine 0.82 0.550-1.02 mg/dL Glomerular Filtration Rate Calc 78 >90 mL/min BUN/Creatinine Ratio 13.4 10.0-20.0 Serum Glucose 134 H 74-106 mg/dL Calcium Level 9.4 8.7-10.4 mg/dL Total Bilirubin 0.8 0.2-1.0 mg/dL Aspartate Amino Transferase (AST) 53 H 13-40 U/L Alanine Aminotransferase (ALT) 69 H 7-40 U/L Alkaline Phosphatase 88 46-116 U/L Total Protein 7.0 5.7-8.2 g/dL Albumin 4.3 3.2-4.8 g/dL Lipase 45 12-53 U/L Assessment Gallbladder polyp. Hepatic steatosis. EKG abnormality. Chest pain. Plan/Recommendation I agree with your ongoing assessment and care of plan. Telemetry reviewed. Echocardiogram. Trend troponin. Morphine and [place] for pain management. Amlodipine. Aspirin, Lipitor. DVT and GI prophylactics. Nitro SL. Additional plan as per the hospital course. A total of 45 minutes was spent reviewing the patient record, examining the patient, making a diagnostic and therapeutic plan, discussing this plan with medical personnel, following up on diagnostic studies and following the patient for clinical stability excluding any and all procedures. At least 50% of this time was spent in direct, [id number] contact. Plan discussed with: Patient JOSÉ MIGUEL GASTELUM MD Jun 18, 2025 17:46
[2025-06-19] VITALS (7 sets, daily range): BP systolic 124–158; BP diastolic 61–82; PULSE 58–98; RESP 12–18; TEMP 97.3–98.2; O2SAT 65–98
[2025-06-19 07:40] LABS: Albumin 3.8 g/dL (3.2-4.8); Alkaline Phosphatase 74 U/L (46-116); Anion Gap 9 (5-15); BUN/Creatinine Ratio 15.4 (10.0-20.0); Bilirubin, Total 0.6 mg/dL (0.2-1.0); Blood Urea Nitrogen 12 mg/dL (9-23); Calcium 8.9 mg/dL (8.7-10.4); Carbon Dioxide 26 mmol/L (20-31); Chloride 105 mmol/L (98-107); Cholesterol 152 mg/dL (< 200); HDL Cholesterol 43 mg/dL (40-59); Potassium 4.0 mmol/L (3.5-5.1); Sodium 140 mmol/L (136-145); Total Protein 6.2 g/dL (5.7-8.2)
[2025-06-19 07:44] LABS: Alanine Aminotransferase 61 U/L (7-40); Glucose 139 mg/dL (74-106); Triglycerides 169 mg/dL (< 150)
[2025-06-19 08:51] LABS: Lipase 43 U/L (12-53)
[2025-06-19] MEDS: ENOXAPARIN SOD 40 MG/0.4 ML SYRINGE SC SCH (10:20)
[2025-06-19] MEDS: ASPirin-EC 81 mg tab PO SCH (10:20)
[2025-06-19] MEDS: LEVOTHYROXINE SODIUM 100 MCG TAB PO SCH (10:20)
--- NOTE | 2025-06-19 14:26 | DVHSR ---
APPROVED REPORT EXAM: Two-dimensional and M-mode echocardiogram with Doppler and color Doppler. Blood Pressure: 146/68 mmHg INDICATION Chest Pain RISK FACTORS Obesity: Height: 5'2", Weight: 192 DIMENSIONS LVDd4.3 (3.8-5.7cm)LA (2D)3.2 (1.9-4.0cm)Aortic Root3.3 (2.0-3.7cm) LVDs2.6 (2.5-4.0cm)LA (MM) (1.9-4.0cm)Aortic Cusp Exc1.8 (1.5-2.0cm) EF (%) 55.0 (55-70%)Rt. Atrium3.1 (1.9-4.0cm)Asc. Aorta cm IVSd1.0 (0.7-1.1cm)RV (D) (1.8-2.4cm) PWd0.8 (0.7-1.1cm) Mitral Valve MitralMitral Stenosis E wave1.08m/sMV Mean GR.mmHg A wave1.04m/sMV Peak GR.mmHg E/A ratio1.02D MVAcm2 DECEL [id number] 1/2 Timems Aortic Valve Aortic ValveAortic Stenosis V11.20m/Tommy Mean GR.3mmHg V21.26m/Tommy Peak GR.6mmHg LVOT Diameter1.8 (1.8-2.4cm)Doppler AVA2.42cm2 Pulmonic Valve V20.98m/s Other Information Technically limited study due to body habitus. Conclusion LV EF IS 65% AND IS NORMAL NORMAL VALVES NORMAL RV FUNCTION NO EFFUSION
[2025-06-19] MEDS ORDERED: OMEP20TA PO (14:30)
--- NOTE | 2025-06-19 14:32 | DVHDS2 ---
Discharge Summary Date of Admission Jun 18, 2025 at 13:30 Date of Discharge: Jun 19, 2025 Labs/Diagnostic Data: Laboratory Results Test 06/19/25 05:50 06/18/25 11:21 06/18/25 09:54 Sodium Level 140 mmol/L (136-145) Potassium Level 4.0 mmol/L (3.5-5.1) Chloride Level 105 mmol/L (98-107) Carbon Dioxide Level 26 mmol/L (20-31) Anion Gap 9 (5-15) Blood Urea Nitrogen 12 mg/dL (9-23) Creatinine 0.78 mg/dL (0.550-1.02) Glomerular Filtration Rate Calc 83 mL/min (>90) BUN/Creatinine Ratio 15.4 (10.0-20.0) Serum Glucose 139 mg/dL (74-106) Calcium Level 8.9 mg/dL (8.7-10.4) Total Bilirubin 0.6 mg/dL (0.2-1.0) Aspartate Amino Transferase (AST) 46 U/L (13-40) Alanine Aminotransferase (ALT) 61 U/L (7-40) Alkaline Phosphatase 74 U/L (46-116) Troponin I High Sensitivity 5 ng/L (</=34) Total Protein 6.2 g/dL (5.7-8.2) Albumin 3.8 g/dL (3.2-4.8) Triglycerides Level 169 mg/dL (< 150) Cholesterol Level 152 mg/dL (< 200) LDL Cholesterol 90 mg/dL (< 100) HDL Cholesterol 43 mg/dL (40-59) Lipase 43 U/L (12-53) Thyroid Stimulating Hormone (TSH) 0.77 uIU/mL (0.55-4.78) Urine Color Light-yellow (Yellow) Urine Clarity Clear (Clear) Urine pH 6.0 (5.0-9.0) Urine Specific [place] 1.006 (1.001-1.035) Urine Protein Negative (Negative) Urine Ketones Negative (Negative) Urine Blood Negative /uL (Negative) Urine Nitrite Negative (Negative) Urine Bilirubin Negative (Negative) Urine Urobilinogen Normal mg/dL (Negative) Urine Leukocyte Esterase Negative /uL (Negative) Urine RBC 1 /hpf (0 - 4) Urine Microscopic WBC 1 /HPF (0-5) Urine Squamous Epithelial Cells Few /hpf (<5) Urine Bacteria None seen /hpf (None Seen) Urine Glucose Normal mg/dL (Normal) White Blood Count 7.1 10^3/uL (4.4-10.8) Red Blood Count 4.91 10^6/uL (4.0-5.20) Hemoglobin 15.1 g/dL (12.2-16.2) Hematocrit 43.8 % (36.0-46.0) Mean Corpuscular Volume 89.2 fL (80.0-100.0) Mean Corpuscular Hemoglobin 30.7 pg (28.0-32.0) Mean Corpuscular Hemoglobin Concent 34.4 g/dL (32.0-36.0) Red Cell Distribution Width 12.9 % (11.8-14.3) Platelet Count 204 10^3/uL (140-450) Mean Platelet Volume 7.7 fL (6.9-10.8) Neutrophils (%) (Auto) 41.6 % (37.0-80.0) Lymphocytes (%) (Auto) 47.4 % (10.0-50.0) Monocytes (%) (Auto) 7.5 % (0.0-12.0) Eosinophils (%) (Auto) 2.7 % (0.0-7.0) Basophils (%) (Auto) 0.8 % (0.0-2.0) Neutrophils # (Auto) 3.0 10 ^3/uL (1.6-8.6) Lymphocytes # (Auto) 3.4 10 ^3/uL (0.4-5.4) Monocytes # (Auto) 0.5 10 ^3/uL (0-1.3) Eosinophils # (Auto) 0.2 10 ^3/uL (0-0.8) Basophils # (Auto) 0.1 10 ^3/uL (0-0.2) Nucleated Red Blood Cells 0.2 % Other Laboratory Tests 06/19/25 05:50 06/18/25 09:54 Brief Hx & Hospital Course: 69-year-old female presents here with right upper quadrant pain. She states it began yesterday afternoon. She states yesterday morning see ate some cereal and banana. Yesterday afternoon she had for lunch she ate chicken salad sandwich. She states she has follow up by a surgeon Dr. Gabriel Gastelum. She states in the past she has been told she has gallstones. She has associated with nausea right upper quadrant pain discomfort. She states yesterday she was doing housework when this pain started. She states once she rested the pain went away. Currently reports no pain reports positive nausea but states it is because she has not eaten anything and that is normal. Denies any recent fever or chills. Yesterday she did have pain with inspiration. Denies any recent cough cold runny nose fever or chills. In the ER patient ultrasound of the gallbladder showed a small gallbladder polyp otherwise no stones or acute pathology. She is admitted and ruled out for an acute coronary ischemia or NV with a normal cardiac enzymes are normal telemetry without any arrhythmias. Patient was evaluated by improvement lead felt her symptoms are nonspecific and recommended supportive care and treatment. She had an echocardiogram did not show any acute pathology or wall motion problems. While in the hospital patient has symptoms resolved. Patient is tolerating diet without any right upper quadrant pain. However she is counseled and educated regarding a low-fat low-cholesterol right at home. Given her cardiac workup as normal and she is feeling better without any other issues it was felt she could be safely discharged home. However she is advised to follow up with the primary care physician have referral to general surgeon should she have any recurrent right upper quadrant abdominal symptoms. Patient was also counseled regarding diet exercise and weight loss to minimize fatty liver issues as well as gallbladder sludge. Patient verbalized understanding hospital diagnosis, treatment she received, discharge medications, discharge instructions and agree with follow up plan of care as outlined. Operations or Procedures EXAM: Two-dimensional and M-mode echocardiogram with Doppler and color Doppler. Blood Pressure: 146/68 mmHg INDICATION Chest Pain RISK FACTORS Obesity: Height: 5'2", Weight: 192 DIMENSIONS LVDd 4.3 (3.8-5.7cm) LA (2D) 3.2 (1.9-4.0cm) Aortic Root 3.3 (2.0- 3.7cm) LVDs 2.6 (2.5-4.0cm) LA (MM) (1.9-4.0cm) Aortic Cusp Exc 1.8 (1.5- 2.0cm) EF (%) 55.0 (55-70%) Rt. Atrium 3.1 (1.9-4.0cm) Asc. Aorta cm IVSd 1.0 (0.7-1.1cm) RV (D) (1.8-2.4cm) PWd 0.8 (0.7-1.1cm) Mitral Valve Mitral Mitral Stenosis E wave 1.08m/s MV Mean GR. mmHg A wave 1.04m/s MV Peak GR. mmHg E/A ratio 1.0 2D MVA cm2 DECEL Time 251ms PRESS 1/2 Time ms Aortic Valve Aortic Valve Aortic Stenosis V1 1.20m/s AO Mean GR. 3mmHg V2 1.26m/s AO Peak GR. 6mmHg LVOT Diameter 1.8 (1.8-2.4cm) Doppler RAGHU 2.42cm2 Pulmonic Valve V2 0.98m/s Other Information Technically limited study due to body habitus. Conclusion LV EF IS 65% AND IS NORMAL NORMAL VALVES NORMAL RV FUNCTION NO EFFUSION SIGNED BY: JOSÉ MIGUEL GASTELUM MD SIGNED DATE/TIME: 06/19/25 5967 Condition at Discharge: Stable Final Diagnosis/Problems List Right upper quadrant/epigastric discomfort, possible GERD, gallbladder small polyp. Discharge Disposition: Home Discharge Instruct/Medications Diet: Consistent carbohydrate, Cardiac 2g Na,low cholest Diet comment: Low-fat low-cholesterol diet Activity: No Restrictions, As Tolerated Follow Up/Referral: Primary care physician next week and referral to general surgeon if you have any recurrent symptoms Medications: Continue home medications as per discharge med reconciliation list Scheduled Amlodipine Besylate-Benazepril (Lotrel), 1 CAP PO DAILY, (Reported) Atorvastatin Calcium (Atorvastatin Calcium), 1 TAB PO DAILY, (Reported) Cholecalciferol (Vitamin D3), 1 TAB PO DAILY, (Reported) Hydrochlorothiazide (Hydrochlorothiazide), 1 TAB PO DAILY, (Reported) Levothyroxine Sodium (Levothyroxine Sodium), 88 MCG PO DAILY, (Reported) Multiple Vitamin (Multivitamins), 1 TAB PO DAILY, (Reported) Omeprazole (Gnp Omeprazole), 40 MG PO DAILY Miscellaneous Medications Alpha Tocopheryl Acid Succinat (Vitamin E), 400 UNIT PO, (Reported) Magnesium Oxide (Magnesium Oxide), 250 MG OR, (Reported) [place]-3 Fatty Acids (Fish Oil [place]-3 1000 mg), 1 CAP PO, (Reported) Vitamin N-Goqmtbexeecrwyo-Dmtw (Vitamin C & D3/Landy Hips), 1 OR, (Reported) Zinc Gluconate (Zinc), 50 MG PO, (Reported) Discontinued Medications Amlodipine Besylate (Amlodipine Besylate), 1 TAB PO DAILY, (Reported) Levothyroxine Sodium (Synthroid Tablet), 1 TAB PO DAILY, (Reported) Discontinued Reason: Prescription changed Discharge Statement: "Patient was advised to return to the ER or call 911 if any headaches, dizziness, shortness of breath, chest pain, abdominal pain, bleeding, fevers, or worsening of medical condition. Patient was counseled about treatment plan, medications, possible side effects, patientverbalized understanding. All questions were answered to the best of my ability. This discharge took greater then 30 minutes in planning, reviewing documentation, counseling the patient, and discussing with other team members." ASSESSMENT ASSESSMENT Assessment Right upper quadrant/epigastric discomfort, possible GERD, gallbladder small polyp. ROLANDO JHA MD Jun 19, 2025 14:32
--- NOTE | 2025-06-19 19:50 | DVHPN2 ---
Progress Note - Dictate Date Seen: Jun 19, 2025 Medical Necessity Reason Pt with a Central, PICC or Fol: No Subjective Patient was seen and evaluated in follow up. No overnight events. Echocardiogram shows EF of 65% and is normal. vital signs Vital Sign Date Time Temp Pulse Resp B/P (MAP) Pulse Ox O2 Delivery O2 Flow Rate FiO2 06/19/25 10:22 124/61 06/19/25 09:00 97.7 98 12 65 97.7 06/18/25 20:00 Room Air* 0 21 Total Intake and Output 06/18/25 06/18/25 06/19/25 15:00 23:00 07:00 Intake Total 500 ml Balance 500 ml medications Current Medications Medications Dose Ordered Sig/Aaliyah Route Start Time Stop Time Status Last Admin Dose Admin Nitroglycerin 0.4 mg Q5MINP PRN SL 06/18/25 13:30 Morphine Sulfate 2 mg Q30M PRN IV 06/18/25 13:30 Amlodipine Besylate 5 mg DAILY PO 06/19/25 10:00 06/19/25 10:22 5 MG Levothyroxine Sodium 100 mcg DAILY PO 06/19/25 10:00 06/19/25 10:20 100 MCG Atorvastatin Calcium 10 mg HS PO 06/18/25 22:00 06/18/25 21:43 10 MG Pantoprazole Sodium 40 mg BID IV 06/18/25 22:00 06/19/25 10:20 40 MG Enoxaparin Sodium 40 mg DAILY SC 06/19/25 10:00 06/19/25 10:20 40 MG Aspirin 81 mg DAILY PO 06/19/25 10:00 06/19/25 10:20 81 MG Ondansetron HCl 4 mg Q4HPRN PRN IV 06/18/25 13:45 Morphine Sulfate 2 mg Q4HPRN PRN IV 06/18/25 13:45 Acetaminophen/ Hydrocodone Bitart 1 tab Q6HPRN PRN PO 06/18/25 13:45 objective GENERAL: Alert and oriented x 3. No acute distress. EYES: PERRL, EOMI. Anicteric. HENT: Moist mucous membranes. LUNGS: Clear to auscultation bilaterally. CARDIOVASCULAR: Regular rate and rhythm. ABDOMEN: Soft, nontender and nondistended. EXTREMITIES: No edema. NEUROLOGIC: No focal neurological deficits. SKIN: Warm, dry. laboratory and microbiology Laboratory Tests 06/19/25 05:50 06/18/25 09:54 Test 06/19/25 05:50 Range/Units Serum Glucose 139 H 74-106 mg/dL Problem List Gallbladder polyp. Hepatic steatosis. EKG abnormality. Chest pain. Assessment/Plan Continued all current supportive medical care. Morphine and [place] for pain management. Amlodipine. Aspirin. DVT and GI prophylactics. Nitro SL. Additional plan as per the hospital course. Plan discussed with: Patient JOSÉ MIGUEL GASTELUM MD Jun 19, 2025 12:21
== END 2025-06-19 17:00 | disposition home or self-care (01) | DRG 392 ==
LOC: ER 09:28 → OVERFLOW 13:30 → TELE-WESTW 18:02
PROVIDERS: ADMIT Hospitalist; ATTEND Hospitalist
DX: K21.9 Gastro-esophageal reflux disease without esophagitis (principal); K82.4 Cholesterolosis of gallbladder; I10 Essential (primary) hypertension; K76.0 Fatty (change of) liver, not elsewhere classified; E03.9 Hypothyroidism, unspecified; E78.00 Pure hypercholesterolemia, unspecified; R94.31 Abnormal electrocardiogram [ECG] [EKG]; Z88.1 Allergy status to other antibiotic agents; Z82.0 Family history of epilepsy and other diseases of the nervous system; Z83.3 Family history of diabetes mellitus; Z82.49 Family history of ischemic heart disease and other diseases of the circulatory system; Z79.82 Long term (current) use of aspirin
CPT/HCPCS: 36415; 71046; 76705; 80053; 80061; 81001; 83690; 84443; 84484; 85025; 93005; 93306; 96360; G0378; J2470